=== PATIENT | female | born 1990 | race Caucasian/White ===

== ENCOUNTER 2018-04-24 13:23 | Outpatient (CLI) | payer MEDICAID | END 2018-04-24 16:20 | disposition home or self-care (01) | LOC: OBT 13:23 → L-D 13:23 → OBT 16:20 | DX: O36.8130 Decreased fetal movements, third trimester, not applicable or unspecified (principal); Z3A.33 33 weeks gestation of pregnancy | CPT/HCPCS: 76818 ==

== ENCOUNTER 2018-05-21 20:12 | Outpatient (CLI) | payer MEDICAID ==
[2018-05-21 21:04] LABS: ADD UMIC YES; UR ASCORBIC ACID NEGATIVE (NEGATIVE); UR BACTERIA FEW /HPF (NONE SEEN); UR BILIRUBIN (Dip) NEGATIVE (NEGATIVE); UR BLOOD (Dip) NEGATIVE (NEGATIVE); UR CLARITY SLIGHTLY CLOUDY (CLEAR); UR COLOR YELLOW (YELLOW); UR GLUCOSE (Dip) NEGATIVE (NEGATIVE); UR KETONES (Dip) NEGATIVE (NEGATIVE); UR LEUKOCYTE ESTERASE (Dip) TRACE Leu/ul (NEGATIVE); UR NITRITE (Dip) NEGATIVE (NEGATIVE); UR RBC 1 /HPF (0-5); UR SQUAMOUS EPITHELIAL CELL FEW /HPF (FEW); UR TOTAL PROTEIN (Dip) NEGATIVE (NEGATIVE); UR UROBILINOGEN (Dip) NEGATIVE (NEGATIVE); UR WBC 2 /HPF (0-5)
[2018-05-21] MEDS: TERBUTALINE 1 MG/ML INJ SC (22:42)
== END 2018-05-21 23:45 | disposition home or self-care (01) ==
LOC: OBT 20:12 → L-D 20:12 → OBT 23:45
DX: O62.9 Abnormality of forces of labor, unspecified (principal); Z3A.37 37 weeks gestation of pregnancy
CPT/HCPCS: 81001; 87086; 96372

== ENCOUNTER 2018-05-30 10:21 | Inpatient (IN) | payer MEDICAID ==
[~2018-05-30 10:21] MED LIST: OXYTOCIN 30 UNITS/LR 500 ML BAG IV
[2018-05-30] MEDS ORDERED: OXYTOCIN 30 UNITS/LR 500 ML IV ×2 (11:00→23:00)
[2018-05-30] MEDS ORDERED: CARBOPROST 250 MCG INJ IM ×2 (11:00→23:00)
[2018-05-30] MEDS ORDERED: METHYLERGONOVINE 0.2 MG INJ IM ×2 (11:00→23:00)
[2018-05-30] MEDS ORDERED: MISOPROSTOL 200 MCG TAB PR ×2 (11:00→23:00)
[2018-05-30 11:21] LABS: ADD MAN DIFF? NO
[2018-05-30 11:22] LABS: BASOPHILS % 0.3 % (0.0-2.0); EOSINOPHILS # 0.2 10^3/ul (0.0-0.5); EOSINOPHILS % 1.3 % (0.0-7.0); HEMATOCRIT 39.4 % (37.0-47.0); HEMOGLOBIN 13.5 g/dl (12.0-16.0); LYMPHOCYTES # 2.1 10^3/ul (0.8-2.9); LYMPHOCYTES % 16.5 % (15.0-51.0); MEAN CORPUSCULAR HGB CONC 34.3 g/dl (32.0-37.0); MEAN CORPUSCULAR VOLUME 87.6 fl (82.0-101.0); MEAN PLATELET VOLUME 11.1 fl (7.4-10.4); MONOCYTE # 0.8 10^3/ul (0.3-0.9); MONOCYTES % 6.7 % (0.0-11.0); NEUTROPHILS % 71.5 % (39.0-77.0); PLATELET COUNT 170 10^3/UL (140-415); RED CELL DISTRIBUTION WIDTH 14.4 % (11.5-14.5)
[2018-05-30 11:22] LABS: WHITE BLOOD COUNT 12.6 10^3/ul (4.8-10.8)
[2018-05-30 11:45] LABS: INR 0.94; PROTIME 12.7 Sec (11.9-14.9)
[2018-05-30] MEDS: LACTATED RINGER'S 1,000 ML IV ×3 (11:53→22:55)
[2018-05-30 12:12] LABS: HEPATITIS B SURFACE ANTIGEN NEGATIVE (NEGATIVE)
[2018-05-30 12:32] LABS: PARTIAL THROMBOPLASTIN TIME 25.5 Sec (25.0-35.0)
[2018-05-30 14:58] LABS: RAPID PLASMA REAGIN NONREACTIVE (NR)
[2018-05-30] MEDS: ONDANSETRON 4 MG INJ IV (17:07)
[2018-05-30] MEDS: CITRIC ACID/SODIUM CITRATE 15 ML CUP PO (17:09)
[2018-05-30] MEDS ORDERED: morphine SULFATE/PF (10 MG/10 ML) INJ (17:58)
[2018-05-30] MEDS ORDERED: OXYTOCIN 10 UNIT INJ (17:59)
[2018-05-30] MEDS ORDERED: BUPIVACAINE 0.75%/DEXT (SPINAL) 2 ML INJ (17:59)
[2018-05-30] MEDS ORDERED: PHENYLephrine (100 MCG/ML) 5ML SYG (17:59)
[2018-05-30] MEDS ORDERED: KETOROLAC 30 MG INJ (18:33)
[2018-05-30] MEDS ORDERED: DEXAMETHASONE 4 MG/ML 1 ML INJ (18:33)
[2018-05-30] MEDS ORDERED: ONDANSETRON 4 MG INJ (18:33)
[2018-05-30] MEDS ORDERED: METOCLOPRAMIDE 10 MG INJ (18:33)
[2018-05-30] MEDS: OXYTOCIN 30 UNITS/LR 500 ML IV ×2 (19:02→21:42)
[2018-05-30] MEDS ORDERED: morphine 2 MG INJ IV ×2 (19:30)
[2018-05-30] MEDS ORDERED: NALBUPHINE HCL (10 MG/1 ML) INJ IV (19:30)
[2018-05-30] MEDS ORDERED: NALOXONE (0.4 MG/ML) INJ IV (19:30)
[2018-05-30] MEDS ORDERED: HYDROCODONE/APAP (5/325) TAB PO (19:30)
[2018-05-30] MEDS ORDERED: HYDROmorphONE 0.5 MG/0.5 ML SYG IV (19:30)
[2018-05-30] MEDS ORDERED: ACETAMINOPHEN 500 MG TAB PO (19:30)
[2018-05-30] MEDS ORDERED: ONDANSETRON 4 MG INJ IV (19:30)
[2018-05-30] MEDS: CEFAZOLIN 2 GM/50 ML (PMX) 50 ML IV (19:42)
[2018-05-30] MEDS: AZITHROMYCIN 500MG/NS (PMX) 250 ML IVPB (19:57)
[2018-05-30] MEDS: HYDROmorphONE 0.5 MG/0.5 ML SYG IV (21:55)
[2018-05-30] MEDS ORDERED: LANOLIN 7 GM TUBE TOP (23:00)
[2018-05-31] MEDS: CEFAZOLIN 2 GM/50 ML (PMX) 50 ML IVPB ×3 (00:23→16:55)
[2018-05-31] MEDS: LACTATED RINGER'S 1,000 ML IV ×4 (02:59→16:56)
[2018-05-31] MEDS: DIPHENHYDRAMINE 50 MG INJ IV (03:02)
[2018-05-31] MEDS: CLINDAMYCIN 300 MG CAP PO ×4 (05:48→17:32)
[2018-05-31] MEDS: KETOROLAC 30 MG INJ IV ×2 (06:27→17:03)
[2018-05-31 06:40] LABS: ADD MAN DIFF? NO
[2018-05-31 06:49] LABS: BASOPHILS % 0.2 % (0.0-2.0); EOSINOPHILS % 0.2 % (0.0-7.0); HEMATOCRIT 36.1 % (37.0-47.0); HEMOGLOBIN 12.3 g/dl (12.0-16.0); LYMPHOCYTES # 2.3 10^3/ul (0.8-2.9); LYMPHOCYTES % 12.3 % (15.0-51.0); MEAN CORPUSCULAR HGB CONC 34.1 g/dl (32.0-37.0); MEAN PLATELET VOLUME 11.3 fl (7.4-10.4); MONOCYTE # 1.3 10^3/ul (0.3-0.9); MONOCYTES % 6.8 % (0.0-11.0); NEUTROPHIL # 14.7 10^3/ul (1.6-7.5); NEUTROPHILS % 79.1 % (39.0-77.0); PLATELET COUNT 165 10^3/UL (140-415); RED CELL DISTRIBUTION WIDTH 13.9 % (11.5-14.5)
[2018-05-31 06:49] LABS: WHITE BLOOD COUNT 18.6 10^3/ul (4.8-10.8)
[2018-05-31] MEDS: SENNA/DOCUSATE NA (8.6MG/50MG) TAB PO ×2 (09:37→21:32)
[2018-05-31] MEDS ORDERED: HYDROCODONE/APAP (5/325) TAB PO (17:55)
[2018-05-31] MEDS ORDERED: OXYCODONE/ACETAMINOPHEN (5/325) TAB PO (17:55)
[2018-05-31] MEDS: BISACODYL 10 MG SUPP PR (18:47)
[2018-05-31] MEDS: IBUPROFEN 800 MG TAB PO (21:39)
[2018-06-01] MEDS: IBUPROFEN 800 MG TAB PO ×3 (05:36→21:18)
[2018-06-01] MEDS: CLINDAMYCIN 300 MG CAP PO ×5 (05:36→23:46)
[2018-06-01] MEDS: SENNA/DOCUSATE NA (8.6MG/50MG) TAB PO ×2 (08:22→21:18)
[2018-06-01 10:32] LABS: ADD MAN DIFF? NO
[2018-06-01 10:36] LABS: WHITE BLOOD COUNT 13.2 10^3/ul (4.8-10.8)
[2018-06-01 10:36] LABS: BASOPHILS % 0.3 % (0.0-2.0); EOSINOPHILS # 0.2 10^3/ul (0.0-0.5); EOSINOPHILS % 1.5 % (0.0-7.0); HEMATOCRIT 37.5 % (37.0-47.0); HEMOGLOBIN 12.5 g/dl (12.0-16.0); LYMPHOCYTES % 15.3 % (15.0-51.0); MEAN CORPUSCULAR HEMOGLOBIN 30.2 pg (29.0-33.0); MEAN CORPUSCULAR HGB CONC 33.3 g/dl (32.0-37.0); MEAN CORPUSCULAR VOLUME 90.6 fl (82.0-101.0); MEAN PLATELET VOLUME 11.4 fl (7.4-10.4); MONOCYTE # 0.8 10^3/ul (0.3-0.9); MONOCYTES % 5.7 % (0.0-11.0); NEUTROPHILS % 75.5 % (39.0-77.0); PLATELET COUNT 167 10^3/UL (140-415); RED BLOOD COUNT 4.14 10^6/ul (4.20-5.40); RED CELL DISTRIBUTION WIDTH 14.3 % (11.5-14.5)
[2018-06-01] MEDS: NA PHOSPHATE/BIPHOS 133 ML ENEMA PR (21:51)
[2018-06-02] MEDS: CLINDAMYCIN 300 MG CAP PO (05:34)
[2018-06-02] MEDS: IBUPROFEN 800 MG TAB PO (05:34)
[2018-06-02] MEDS: SENNA/DOCUSATE NA (8.6MG/50MG) TAB PO (09:11)
[2018-06-02] MEDS: DIPHTH/TET/ACEL PERTUSS (ADULT) 0.5 ML VIAL IM* (09:12)
== END 2018-06-02 14:00 | disposition home or self-care (01) | DRG 766 ==
LOC: L-D 10:21 → PP1 22:24
PROVIDERS: Obstetrics & Gynecology
PROC: 10D00Z1 Extraction of Products of Conception, Low, Open Approach (ICD-10-PCS; principal; 2018-05-30 12:30)
DX: O34.219 Maternal care for unspecified type scar from previous cesarean delivery (principal); Z3A.39 39 weeks gestation of pregnancy; Z37.0 Single live birth
CPT/HCPCS: 85025; 85610; 85730; 86592; 86850; 86900; 86901; 87340; 99464